=== PATIENT | female | born 1955 ===

== ENCOUNTER 2019-11-13 07:16 | Day surgery (SDC) | payer OTHER, SELFPAY ==
[~2019-11-13] VITALS: Ht 172.7 cm; Wt 127.9 kg
[2019-11-13] MEDS ORDERED: diphenhydrAMINE 50 MG/ML VIAL ONE (08:16)
[2019-11-13] MEDS ORDERED: MIDAZOLAM 2 MG/2 ML VIAL ONE (08:17)
[2019-11-13] MEDS ORDERED: LIDOCAINE 2% 100 MG/5 ML UJET TP ONE (08:17)
[2019-11-13] MEDS ORDERED: fentaNYL 0.05 MG/ML VIAL ONE (08:17)
== END 2019-11-13 10:20 | disposition home or self-care (01) ==
LOC: MDS 07:16 → MMU 07:17 → MDS 10:20
PROVIDERS: ATTEND Internal Medicine Gastroenterology
DX: Z12.11 Encounter for screening for malignant neoplasm of colon (principal); Z86.010 Personal history of colon polyps; Z85.42 Personal history of malignant neoplasm of other parts of uterus; Z80.0 Family history of malignant neoplasm of digestive organs; I10 Essential (primary) hypertension; E78.00 Pure hypercholesterolemia, unspecified; E03.9 Hypothyroidism, unspecified; Z90.49 Acquired absence of other specified parts of digestive tract; Z90.710 Acquired absence of both cervix and uterus; Z11.59 Encounter for screening for other viral diseases
CPT/HCPCS: 45378; J2250; J3010; U0003; J1200

== ENCOUNTER 2021-02-17 06:32 | Day surgery (SDC) | payer OTHER, SELFPAY ==
[~2021-02-17] VITALS: Ht 172.7 cm; Wt 128.8 kg
[2021-02-17 07:47] LABS: BASOPHILS # (AUTO) 0.1 K/uL (0.00-0.22); EOSINOPHILS # (AUTO) 0.3 K/uL (0-0.4); EOSINOPHILS % (AUTO) 3.9 % (0.0-4.0); HEMOGLOBIN 12.6 g/dL (12.0-16.0); LYMPHOCYTES # (AUTO) 0.8 K/uL (2.5-16.5); LYMPHOCYTES % (AUTO) 11.6 % (20.5-51.1); MEAN CORPUSCULAR HEMOGLOBIN 31 pg (27-31); MEAN CORPUSCULAR HGB CONC 33 g/dL (33-37); MONOCYTES # (AUTO) 0.5 K/uL (0.8-1.0); MONOCYTES % (AUTO) 6.7 % (1.7-9.3); NEUTROPHILS # (AUTO) 5.5 K/uL (1.8-7.7); NEUTROPHILS % (AUTO) 76.8 % (42.2-75.2); PLATELET COUNT (AUTO) 245 K/uL (140-450); RED BLOOD CELL COUNT(AUTO) 4.13 MIL/uL (4.20-5.40); RED CELL DISTRIBUTION WIDTH 14.6 % (11.6-13.7); WHITE BLOOD COUNT (AUTO) 7.1 K/uL (4.8-10.8)
[2021-02-17 08:09] LABS: ALBUMIN 3.3 g/dL (3.4-5.0); CARBON DIOXIDE 26.6 mmol/L (21-32); CREATININE 0.8 mg/dL (0.6-1.3); POTASSIUM 3.6 mmol/L (3.5-5.1); TOTAL BILIRUBIN 0.5 mg/dL (0.0-1.0)
[2021-02-17] MEDS ORDERED: LIDOCAINE 2% 100 MG/5 ML UJET TP ONE (09:36)
[2021-02-17] MEDS ORDERED: SIMETHICONE 40 MG/0.6 ML ONE (09:58)
[2021-02-17] MEDS ORDERED: KETAMINE 500 MG/5 ML VIAL ONE (09:59)
[2021-02-17] MEDS ORDERED: PROPOFOL 200 MG/20 ML VIAL IV ONE (10:05)
[2021-02-17] MEDS ORDERED: ONDANSETRON 4 MG/2 ML VIAL ONE (10:05)
[2021-02-17] MEDS ORDERED: METOCLOPRAMIDE 10 MG/2 ML INJ VIAL ONE (10:05)
[2021-02-17] MEDS ORDERED: MEPERIDINE 25 MG/ML SYR IVP PRN (10:10)
[2021-02-17] MEDS ORDERED: LACTATED RINGERS 1,000 ML IV SCH (10:10)
[2021-02-17] MEDS ORDERED: diphenhydrAMINE 50 MG/ML VIAL IVP PRN (10:10)
[2021-02-17] MEDS ORDERED: BLOOD GLUCOSE MONITORING 1 DEV DEV FS SCH (10:10)
[2021-02-17] MEDS ORDERED: ONDANSETRON 4 MG/2 ML VIAL IVP PRN (10:10)
[2021-02-17] MEDS ORDERED: oxyCODONE/APAP 5/325 MG 1 TAB TAB PO PRN (10:10)
[2021-02-17] MEDS ORDERED: SIMETHICONE 40 MG/0.6 ML PO ONE (10:30)
== END 2021-02-17 12:17 | disposition home or self-care (01) ==
LOC: MDS 06:32 → MFCC 06:33 → MDS 12:17
PROVIDERS: ATTEND Internal Medicine Gastroenterology
DX: Z12.11 Encounter for screening for malignant neoplasm of colon (principal); K63.5 Polyp of colon; I10 Essential (primary) hypertension; E11.9 Type 2 diabetes mellitus without complications; E03.9 Hypothyroidism, unspecified; Z80.0 Family history of malignant neoplasm of digestive organs; Z86.010 Personal history of colon polyps; Z90.710 Acquired absence of both cervix and uterus; Z79.899 Other long term (current) drug therapy; Z20.822 Contact with and (suspected) exposure to COVID-19
CPT/HCPCS: 36415; 45380; 45385; 71045; 80053; 85025; 87426; 88305; J2405; J2704; J2765; J7030